=== PATIENT | female | born 1990 | race Native Hawaiian/Other Pacific Islander ===

== ENCOUNTER 2017-01-17 19:40 | Emergency (ER) | payer BC, OTHER ==
[~2017-01-17] VITALS: Ht 162.6 cm; Wt 55.3 kg
[~2017-01-17 19:40] MED LIST: ALPR0.5T24 PO; LISI5TAB10 PO; TRAZ50TA36 PO
[2017-01-17 20:19] VITALS: BP 128/85; TEMP 98.2
== END 2017-01-17 20:20 | disposition home or self-care (01) ==
LOC: ED 19:40
DX: T36.3X5A Adverse effect of macrolides, initial encounter (principal); L27.0 Generalized skin eruption due to drugs and medicaments taken internally
CPT/HCPCS: 96372; 99283; J1100

== ENCOUNTER 2017-02-18 07:46 | Day surgery (SDC) | payer BC, OTHER | END 2017-02-18 11:00 | disposition home or self-care (01) | LOC: OR 07:46 | PROC: 0HBT0ZX Excision of Right Breast, Open Approach, Diagnostic (ICD-10-PCS; principal; 2017-02-18) | DX: L92.9 Granulomatous disorder of the skin and subcutaneous tissue, unspecified (principal); N64.89 Other specified disorders of breast; Z80.3 Family history of malignant neoplasm of breast | CPT/HCPCS: J2250; J2704; J3490 ==

== ENCOUNTER 2017-02-22 08:44 | Outpatient (CLI) | payer BC, OTHER | END 2017-02-22 19:43 | disposition home or self-care (01) | LOC: CT 08:44 | DX: N32.89 Other specified disorders of bladder (principal) | CPT/HCPCS: Q9963 ==

== ENCOUNTER 2017-05-27 22:15 | Emergency (ER) | payer BC, OTHER ==
[~2017-05-27] VITALS: Ht 157.5 cm; Wt 52.2 kg
[2017-05-27 23:40] LABS: PLATELET COUNT 236 K/uL (152-353)
[2017-05-27 23:51] LABS: POTASSIUM 3.7 mmol/L (3.6-5.2); SODIUM 135 mmol/L (136-145)
[2017-05-28 00:18] VITALS: BP 119/65; TEMP 98.1
== END 2017-05-28 00:20 | disposition home or self-care (01) ==
LOC: ED 22:15
DX: I10 Essential (primary) hypertension (principal); H53.8 Other visual disturbances; T42.3X5A Adverse effect of barbiturates, initial encounter; T42.4X5A Adverse effect of benzodiazepines, initial encounter
CPT/HCPCS: 80053; 80307; 81000; 85027; 93005; 96374; 99284; G0479; J1885